=== PATIENT | female | born 1935 | race Two or more races ===

== ENCOUNTER 2017-06-04 09:48 | Outpatient (CLI) | payer OTHER ==
[~2017-06-04 09:48] MED LIST: ASA81 MG; ATIVAN1 MG; GLUCOPHAGE XR500 MG; HYZAAR 100-121 UDTAB; INDUR; PLAVIX75 MG; SIMVASTATIN10 MG; TOPROL XL25 MG; VITAMINA B12
== END 2017-06-04 10:54 | disposition home or self-care (01) ==
LOC: NUCLEAR 09:48
DX: I70.239 Atherosclerosis of native arteries of right leg with ulceration of unspecified site (principal)

== ENCOUNTER 2017-06-17 13:32 | Outpatient (CLI) | payer OTHER | END 2017-06-17 13:47 | disposition home or self-care (01) | LOC: LAB 13:32 | DX: R94.5 Abnormal results of liver function studies (principal); I24.0 Acute coronary thrombosis not resulting in myocardial infarction; I10 Essential (primary) hypertension; R07.89 Other chest pain; E78.2 Mixed hyperlipidemia ==

== ENCOUNTER 2017-10-05 12:41 | Outpatient (CLI) | payer OTHER | END 2017-10-05 17:00 | disposition home or self-care (01) | LOC: MRI 12:41 | DX: M54.5 Low back pain (principal) | CPT/HCPCS: 72158; A9579; 72149 ==

== ENCOUNTER 2017-11-19 09:51 | Outpatient (CLI) | payer OTHER | END 2017-11-19 10:00 | disposition home or self-care (01) | LOC: NUCLEAR 09:51 | DX: S85.001A Unspecified injury of popliteal artery, right leg, initial encounter (principal); S85.002A Unspecified injury of popliteal artery, left leg, initial encounter; I87.2 Venous insufficiency (chronic) (peripheral) ==

== ENCOUNTER 2018-01-26 17:43 | Outpatient (CLI) | payer OTHER | END 2018-01-26 17:58 | disposition home or self-care (01) | LOC: RAD 17:43 | DX: M54.5 Low back pain (principal); M79.604 Pain in right leg ==

== ENCOUNTER 2018-10-11 21:04 | Emergency (ER) | payer OTHER ==
[~2018-10-11] VITALS: Ht 167.6 cm; Wt 63.5 kg
== END 2018-10-13 07:59 | disposition designated cancer center or children's hospital (05) ==
LOC: ER 21:04 → CPU-OBS 21:07 → ER 10-13 07:59
DX: I20.0 Unstable angina (principal); E78.00 Pure hypercholesterolemia, unspecified; E11.9 Type 2 diabetes mellitus without complications; E78.1 Pure hyperglyceridemia

== ENCOUNTER 2018-11-03 11:42 | Outpatient (CLI) | payer OTHER | END 2018-11-03 15:00 | disposition home or self-care (01) | LOC: RAD 11:42 | DX: M25.511 Pain in right shoulder (principal) ==

== ENCOUNTER 2019-06-10 09:22 | Outpatient (CLI) | payer OTHER | END 2019-06-10 10:41 | disposition home or self-care (01) | LOC: RAD 09:22 → NUCLEAR 09:22 | DX: I87.2 Venous insufficiency (chronic) (peripheral) (principal) ==

== ENCOUNTER → 2019-11-05 12:27 | Outpatient (CLI) | payer OTHER | END | disposition home or self-care (01) | LOC: LAB 12:27 | PROVIDERS: ATTEND Internal Medicine Cardiovascular Disease | DX: E03.8 Other specified hypothyroidism (principal); E78.1 Pure hyperglyceridemia; R94.5 Abnormal results of liver function studies; R78.89 Finding of other specified substances, not normally found in blood; E11.9 Type 2 diabetes mellitus without complications ==

== ENCOUNTER → 2019-11-23 | Outpatient (CLI) | payer OTHER | END | disposition home or self-care (01) | LOC: MRI 10:35 | PROVIDERS: ATTEND Internal Medicine Cardiovascular Disease | DX: I63.89 Other cerebral infarction (principal) | CPT/HCPCS: 70553; A9575 ==

== ENCOUNTER → 2019-12-20 | Outpatient (CLI) | payer OTHER | END | disposition home or self-care (01) | LOC: MRI 13:22 | PROVIDERS: ATTEND Internal Medicine Cardiovascular Disease | DX: M54.5 Low back pain (principal); M47.016 Anterior spinal artery compression syndromes, lumbar region | CPT/HCPCS: 72158; A9575; 72149 ==

== ENCOUNTER → 2020-04-05 | Outpatient (CLI) | payer OTHER | END | disposition home or self-care (01) | LOC: MRI 09:03 | PROVIDERS: ATTEND Internal Medicine Cardiovascular Disease | DX: M22.42 Chondromalacia patellae, left knee (principal); M25.562 Pain in left knee | CPT/HCPCS: 73721 ==

== ENCOUNTER 2020-05-16 12:12 | Outpatient (CLI) | payer OTHER | END 2020-05-16 12:30 | disposition home or self-care (01) | LOC: PPH VACUNA 12:12 | PROVIDERS: ATTEND Emergency Medicine Pediatric Emergency Medicine | DX: Z23 Encounter for immunization (principal) ==

== ENCOUNTER → 2020-05-23 09:13 | Outpatient (CLI) | payer OTHER | END | disposition home or self-care (01) | LOC: LAB 09:13 | PROVIDERS: ATTEND Internal Medicine Cardiovascular Disease | DX: D68.8 Other specified coagulation defects (principal); I10 Essential (primary) hypertension; E11.9 Type 2 diabetes mellitus without complications; E78.00 Pure hypercholesterolemia, unspecified; E78.1 Pure hyperglyceridemia; I25.119 Atherosclerotic heart disease of native coronary artery with unspecified angina pectoris; I24.8 Other forms of acute ischemic heart disease ==

== ENCOUNTER 2020-12-31 09:39 | Outpatient (CLI) | payer OTHER ==
[~2020-12-31 09:39] MED LIST changes: +ATIVAN2 M1 PO; +CRESTOR40 MG PO; +GLIMEPIRIDE4 MG; +METFORMIN HCL500 M3 PO; +TOPROL XL100 M1 PO
== END 2020-12-31 18:00 | disposition home or self-care (01) ==
LOC: LAB 09:39
PROVIDERS: ATTEND Internal Medicine Cardiovascular Disease
DX: E78.1 Pure hyperglyceridemia (principal); E11.9 Type 2 diabetes mellitus without complications; E78.89 Other lipoprotein metabolism disorders; I24.8 Other forms of acute ischemic heart disease

== ENCOUNTER 2021-01-03 15:07 | Outpatient (CLI) | payer OTHER | END 2021-01-03 15:08 | disposition home or self-care (01) | LOC: NUCLEAR 15:07 | DX: I25.10 Atherosclerotic heart disease of native coronary artery without angina pectoris (principal); I10 Essential (primary) hypertension ==

== ENCOUNTER 2021-01-03 15:23 | Outpatient (CLI) | payer OTHER | END 2021-01-03 15:30 | disposition home or self-care (01) | LOC: RAD 15:23 | PROVIDERS: ATTEND Internal Medicine Cardiovascular Disease | DX: I10 Essential (primary) hypertension (principal); I25.10 Atherosclerotic heart disease of native coronary artery without angina pectoris ==

== ENCOUNTER 2021-01-03 15:49 | Outpatient (CLI) | payer OTHER | END 2021-01-03 19:00 | disposition home or self-care (01) | LOC: LAB 15:49 | PROVIDERS: ATTEND Internal Medicine Cardiovascular Disease | DX: K76.89 Other specified diseases of liver (principal); E11.9 Type 2 diabetes mellitus without complications; E78.00 Pure hypercholesterolemia, unspecified; E78.1 Pure hyperglyceridemia ==

== ENCOUNTER 2021-02-07 09:19 | Outpatient (CLI) | payer OTHER | END 2021-02-07 09:22 | disposition home or self-care (01) | LOC: PPH VACUNA 09:19 | PROVIDERS: ATTEND Emergency Medicine Pediatric Emergency Medicine | DX: Z23 Encounter for immunization (principal) ==

== ENCOUNTER 2021-02-14 09:36 | Outpatient (CLI) | payer OTHER | END 2021-02-14 09:40 | disposition home or self-care (01) | LOC: NUCLEAR 09:36 | PROVIDERS: ATTEND Internal Medicine Cardiovascular Disease | DX: I80.202 Phlebitis and thrombophlebitis of unspecified deep vessels of left lower extremity (principal) ==

== ENCOUNTER 2021-02-14 11:01 | Outpatient (CLI) | payer OTHER | END 2021-02-14 11:05 | disposition home or self-care (01) | LOC: RAD 11:01 | PROVIDERS: ATTEND Internal Medicine Cardiovascular Disease | DX: M13.862 Other specified arthritis, left knee (principal); M13.861 Other specified arthritis, right knee; M25.461 Effusion, right knee; M25.561 Pain in right knee; M25.362 Other instability, left knee; M25.662 Stiffness of left knee, not elsewhere classified ==

== ENCOUNTER → 2021-04-04 | Outpatient (CLI) | payer OTHER | END | disposition home or self-care (01) | LOC: LAB 15:46 | PROVIDERS: ATTEND Internal Medicine Cardiovascular Disease | DX: D68.8 Other specified coagulation defects (principal); E11.9 Type 2 diabetes mellitus without complications ==

== ENCOUNTER 2021-05-22 15:06 | Outpatient (CLI) | payer OTHER | END 2021-05-22 16:20 | disposition home or self-care (01) | LOC: LAB 15:06 | PROVIDERS: ATTEND Internal Medicine Cardiovascular Disease | DX: D64.89 Other specified anemias (principal); R07.89 Other chest pain; I25.10 Atherosclerotic heart disease of native coronary artery without angina pectoris; E78.00 Pure hypercholesterolemia, unspecified; Z20.828 Contact with and (suspected) exposure to other viral communicable diseases; I10 Essential (primary) hypertension; E11.9 Type 2 diabetes mellitus without complications; D68.8 Other specified coagulation defects; K76.0 Fatty (change of) liver, not elsewhere classified; Z86.007 Personal history of in-situ neoplasm of skin; I24.8 Other forms of acute ischemic heart disease ==

== ENCOUNTER 2021-05-30 13:40 | Outpatient (CLI) | payer OTHER | END 2021-05-30 16:01 | disposition home or self-care (01) | LOC: LAB 13:40 | PROVIDERS: ATTEND Internal Medicine Cardiovascular Disease | DX: R07.89 Other chest pain (principal) ==

== ENCOUNTER 2021-05-31 13:30 | Outpatient (CLI) | payer OTHER | END 2021-05-31 13:35 | disposition home or self-care (01) | LOC: LAB 13:30 | PROVIDERS: ATTEND Internal Medicine Cardiovascular Disease | DX: E11.9 Type 2 diabetes mellitus without complications (principal); R07.89 Other chest pain; I10 Essential (primary) hypertension; E78.00 Pure hypercholesterolemia, unspecified ==

== ENCOUNTER 2021-06-17 10:46 | Outpatient (CLI) | payer OTHER | END 2021-06-18 14:38 | disposition home or self-care (01) | LOC: RAD 10:46 | PROVIDERS: ATTEND Anesthesiology Pain Medicine | DX: M16.0 Bilateral primary osteoarthritis of hip (principal); M17.0 Bilateral primary osteoarthritis of knee ==

== ENCOUNTER 2021-08-02 16:40 | Outpatient (CLI) | payer OTHER | END 2021-08-02 23:00 | disposition home or self-care (01) | LOC: LAB 16:40 | PROVIDERS: ATTEND Internal Medicine Cardiovascular Disease | DX: I10 Essential (primary) hypertension (principal); R07.9 Chest pain, unspecified; E78.1 Pure hyperglyceridemia ==

== ENCOUNTER 2021-10-10 14:25 | Outpatient (CLI) | payer OTHER | END 2021-10-10 14:35 | disposition home or self-care (01) | LOC: LAB 14:25 | PROVIDERS: ATTEND Internal Medicine Cardiovascular Disease | DX: C50.111 Malignant neoplasm of central portion of right female breast (principal); I10 Essential (primary) hypertension; E78.00 Pure hypercholesterolemia, unspecified; E78.1 Pure hyperglyceridemia; D64.9 Anemia, unspecified; E55.9 Vitamin D deficiency, unspecified; M81.0 Age-related osteoporosis without current pathological fracture; Z12.11 Encounter for screening for malignant neoplasm of colon; E03.9 Hypothyroidism, unspecified; D51.9 Vitamin B12 deficiency anemia, unspecified ==

== ENCOUNTER 2021-11-23 12:50 | Outpatient (CLI) | payer OTHER | END 2021-11-23 12:58 | disposition home or self-care (01) | LOC: LAB 12:50 | PROVIDERS: ATTEND Internal Medicine Cardiovascular Disease | DX: R79.0 Abnormal level of blood mineral (principal); E78.00 Pure hypercholesterolemia, unspecified; E78.1 Pure hyperglyceridemia; M05.9 Rheumatoid arthritis with rheumatoid factor, unspecified; M06.9 Rheumatoid arthritis, unspecified; M19.90 Unspecified osteoarthritis, unspecified site; D63.8 Anemia in other chronic diseases classified elsewhere; E03.8 Other specified hypothyroidism; Z12.11 Encounter for screening for malignant neoplasm of colon; Z13.0 Encounter for screening for diseases of the blood and blood-forming organs and certain disorders involving the immune mechanism ==

== ENCOUNTER 2021-12-13 07:30 | Outpatient (CLI) | payer OTHER | END 2021-12-13 15:24 | disposition home or self-care (01) | LOC: TOM 07:30 | PROVIDERS: ATTEND Internal Medicine Cardiovascular Disease | DX: R10.84 Generalized abdominal pain (principal); E11.9 Type 2 diabetes mellitus without complications ==

== ENCOUNTER → 2021-12-24 | Outpatient (CLI) | payer OTHER | END | disposition home or self-care (01) | LOC: LAB 16:48 | DX: E78.1 Pure hyperglyceridemia (principal); E78.00 Pure hypercholesterolemia, unspecified; R07.9 Chest pain, unspecified; I10 Essential (primary) hypertension; D64.9 Anemia, unspecified; E03.8 Other specified hypothyroidism; E11.9 Type 2 diabetes mellitus without complications; I25.119 Atherosclerotic heart disease of native coronary artery with unspecified angina pectoris ==

== ENCOUNTER 2022-02-04 14:50 | Outpatient (CLI) | payer OTHER | END 2022-02-04 14:54 | disposition home or self-care (01) | LOC: LAB 14:50 | PROVIDERS: ATTEND Internal Medicine Cardiovascular Disease | DX: E78.1 Pure hyperglyceridemia (principal); I10 Essential (primary) hypertension; E03.8 Other specified hypothyroidism; E11.9 Type 2 diabetes mellitus without complications; R07.9 Chest pain, unspecified ==

== ENCOUNTER 2022-05-29 13:42 | Outpatient (CLI) | payer OTHER | END 2022-05-29 13:51 | disposition home or self-care (01) | LOC: LAB 13:42 | PROVIDERS: ATTEND Internal Medicine Cardiovascular Disease | DX: Z01.812 Encounter for preprocedural laboratory examination (principal); E55.9 Vitamin D deficiency, unspecified; D64.9 Anemia, unspecified; E11.9 Type 2 diabetes mellitus without complications; E03.8 Other specified hypothyroidism; E78.00 Pure hypercholesterolemia, unspecified; E78.1 Pure hyperglyceridemia; R97.8 Other abnormal tumor markers; Z80.1 Family history of malignant neoplasm of trachea, bronchus and lung; I10 Essential (primary) hypertension ==

== ENCOUNTER 2022-08-07 13:56 | Outpatient (CLI) | payer OTHER | END 2022-08-07 14:06 | disposition home or self-care (01) | LOC: LAB 13:56 | PROVIDERS: ATTEND Internal Medicine Cardiovascular Disease | DX: E03.8 Other specified hypothyroidism (principal); I10 Essential (primary) hypertension; E11.9 Type 2 diabetes mellitus without complications; N39.0 Urinary tract infection, site not specified; E78.00 Pure hypercholesterolemia, unspecified; E78.1 Pure hyperglyceridemia; M13.831 Other specified arthritis, right wrist ==

== ENCOUNTER 2022-09-23 11:58 | Outpatient (CLI) | payer OTHER | END 2022-09-23 12:01 | disposition home or self-care (01) | LOC: NUCLEAR 11:58 | PROVIDERS: ATTEND Internal Medicine Cardiovascular Disease | DX: I35.0 Nonrheumatic aortic (valve) stenosis (principal) ==

== ENCOUNTER 2022-11-14 16:28 | Outpatient (CLI) | payer OTHER | END 2022-11-14 18:50 | disposition home or self-care (01) | LOC: LAB 16:28 | PROVIDERS: ATTEND Internal Medicine Cardiovascular Disease | DX: K92.2 Gastrointestinal hemorrhage, unspecified (principal); D64.9 Anemia, unspecified; D51.9 Vitamin B12 deficiency anemia, unspecified; Z11.9 Encounter for screening for infectious and parasitic diseases, unspecified; E78.00 Pure hypercholesterolemia, unspecified; E78.1 Pure hyperglyceridemia; I10 Essential (primary) hypertension ==

== ENCOUNTER 2023-01-17 13:23 | Outpatient (CLI) | payer OTHER | END 2023-01-17 13:28 | disposition home or self-care (01) | LOC: LAB 13:23 | PROVIDERS: ATTEND Internal Medicine Cardiovascular Disease | DX: E55.9 Vitamin D deficiency, unspecified (principal); E78.00 Pure hypercholesterolemia, unspecified; E78.1 Pure hyperglyceridemia; E11.9 Type 2 diabetes mellitus without complications; D68.8 Other specified coagulation defects; E03.8 Other specified hypothyroidism; Z12.11 Encounter for screening for malignant neoplasm of colon; Z13.0 Encounter for screening for diseases of the blood and blood-forming organs and certain disorders involving the immune mechanism; C18.9 Malignant neoplasm of colon, unspecified; D51.9 Vitamin B12 deficiency anemia, unspecified; D52.8 Other folate deficiency anemias; Z79.01 Long term (current) use of anticoagulants ==

== ENCOUNTER → 2023-02-26 14:27 | Outpatient (CLI) | payer OTHER ==
[2023-02-26 14:58] LABS: PH,URINE 5.5 (5.0-8.0); URINE APPEARANCE Clear; URINE BILIRRUBIN Negative (NEGATIVE); URINE BLOOD Negative; URINE COLOR Yellow; URINE LEUKOCYTE Negative; URINE NITRATE Negative; URINE PROTEIN Negative (NEGATIVE); URINE UROBILINOGEN 0.2 E.U./dl
[2023-02-26 14:59] LABS: HEMATOCRIT 34.6 % (36.0-45.00); HEMOGLOBIN 11.3 g/dL (12.0-15.00); MEAN CELL VOLUME 90.2 fL (80.00-100.00); MEAN CORPUSCULAR HEMOGLOBIN 29.5 pg (27.00-32.0); MEAN CORPUSCULAR HGB CONC 32.7 g/dl (32.0-36.0); PLATELET COUNT 176 K/uL (150-450); RED BLOOD COUNT 3.84 M/uL (4.00-6.00); RED CELL DISTRIBUTION WIDTH 13.5 % (11.5-14.5)
[2023-02-26 15:02] LABS: URINE BACTERIA 91.7 uL (0.0-1933); URINE EPITHELIAL CELLS 4.1 uL (0.0-38.8); URINE WBC 3.8 uL (0.0-23.2)
[2023-02-26 15:06] LABS: URINE GLUCOSE 100 MG/DL (NEGATIVE); URINE RBC 1.2 uL (0.0-20.8)
[2023-02-26 15:37] LABS: BILIRUBIN TOTAL 0.51 mg/dL (0.3-1.2); CALCIUM 9.1 mg/dL (8.5-10.1); CREATININE SERUM 1.13 mg/dL (0.55-1.02); GFR 45.44; GLOBULINA 3.6 G/DL (2.4-3.5); POTASSIUM 4.06 mEq/L (3.5-5.1); TOTAL PROTEIN 6.6 gm/dL (6.4-8.2); TSH 2.23 uIU/mL (0.358-3.74)
[2023-02-27 09:17] LABS: VITAMIN D3 25 HYDROXY 23.04 ng/ml (30-120)
== END | disposition home or self-care (01) ==
LOC: LAB 14:27
PROVIDERS: ATTEND Internal Medicine Cardiovascular Disease
DX: E11.9 Type 2 diabetes mellitus without complications (principal); D51.3 Other dietary vitamin B12 deficiency anemia; R07.9 Chest pain, unspecified; E78.00 Pure hypercholesterolemia, unspecified; E03.8 Other specified hypothyroidism; E78.1 Pure hyperglyceridemia; D51.9 Vitamin B12 deficiency anemia, unspecified; I10 Essential (primary) hypertension; M81.0 Age-related osteoporosis without current pathological fracture

== ENCOUNTER 2023-04-22 16:59 | Outpatient (CLI) | payer OTHER ==
[2023-04-22 17:20] LABS: HEMATOCRIT 33.4 % (36.0-45.00); HEMOGLOBIN 11.5 g/dL (12.0-15.00); MEAN CELL VOLUME 89.1 fL (80.00-100.00); MEAN CORPUSCULAR HEMOGLOBIN 30.6 pg (27.00-32.0); MEAN CORPUSCULAR HGB CONC 34.3 g/dl (32.0-36.0); PLATELET COUNT 195 K/uL (150-450); RED BLOOD COUNT 3.75 M/uL (4.00-6.00); RED CELL DISTRIBUTION WIDTH 14.4 % (11.5-14.5)
[2023-04-22 17:22] LABS: PH,URINE 5.5 (5.0-8.0); URINE APPEARANCE Clear; URINE BACTERIA 79.3 uL (0.0-1933); URINE BILIRRUBIN Negative (NEGATIVE); URINE BLOOD Negative; URINE COLOR Yellow; URINE EPITHELIAL CELLS 20.9 uL (0.0-38.8); URINE LEUKOCYTE Negative; URINE NITRATE Negative; URINE PROTEIN Negative (NEGATIVE); URINE UROBILINOGEN 0.2 E.U./dl; URINE WBC 24.3 uL (0.0-23.2)
[2023-04-22 17:23] LABS: URINE GLUCOSE >=1000 MG/DL (NEGATIVE); URINE RBC 0.4 uL (0.0-20.8)
[2023-04-22 17:32] LABS: ERYTHROCYTE SEDIMENTATION RATE 82 mm/hr
[2023-04-22 17:33] LABS: BILIRUBIN TOTAL 0.32 mg/dL (0.3-1.2); CALCIUM 8.8 mg/dL (8.5-10.1); CHOL HDL RATIO 5.8 (0-5.0); CREATININE SERUM 1.11 mg/dL (0.55-1.02); GFR 46.39; GLOBULINA 3.9 G/DL (2.4-3.5); POTASSIUM 4.33 mEq/L (3.5-5.1); TOTAL PROTEIN 6.9 gm/dL (6.4-8.2)
== END 2023-04-22 17:04 | disposition home or self-care (01) ==
LOC: LAB 16:59
PROVIDERS: ATTEND Internal Medicine Cardiovascular Disease
DX: M13.80 Other specified arthritis, unspecified site (principal); E78.00 Pure hypercholesterolemia, unspecified; E78.1 Pure hyperglyceridemia; E11.9 Type 2 diabetes mellitus without complications; Z91.011 Allergy to milk products; Z91.013 Allergy to seafood

== ENCOUNTER 2023-05-30 11:49 | Outpatient (CLI) | payer OTHER ==
[2023-05-30 13:56] LABS: MYCOPLASMA PNEUMONIAE IGM NON REACTIVE (NO REACTIVE)
== END 2023-05-30 11:50 | disposition home or self-care (01) ==
LOC: LAB 11:49
PROVIDERS: ATTEND Internal Medicine Cardiovascular Disease
DX: J10.1 Influenza due to other identified influenza virus with other respiratory manifestations (principal); B34.8 Other viral infections of unspecified site; B34.9 Viral infection, unspecified; A49.3 Mycoplasma infection, unspecified site; Z11.52 Encounter for screening for COVID-19; B97.4 Respiratory syncytial virus as the cause of diseases classified elsewhere; U07.1 COVID-19

== ENCOUNTER 2023-06-04 14:30 | Outpatient (CLI) | payer OTHER ==
[2023-06-04 14:51] LABS: HEMATOCRIT 38.1 % (36.0-45.00); HEMOGLOBIN 12.9 g/dL (12.0-15.00); MEAN CELL VOLUME 88.4 fL (80.00-100.00); MEAN CORPUSCULAR HEMOGLOBIN 30.1 pg (27.00-32.0); PLATELET COUNT 175 K/uL (150-450); RED CELL DISTRIBUTION WIDTH 14.6 % (11.5-14.5)
[2023-06-04 15:02] LABS: MYCOPLASMA PNEUMONIAE IGM REACTIVE (NO REACTIVE)
[2023-06-04 15:04] LABS: ERYTHROCYTE SEDIMENTATION RATE 61 mm/hr
[2023-06-04 15:13] LABS: CHOL HDL RATIO 3.3 (0-5.0); TSH 3.31 uIU/mL (0.358-3.74)
[2023-06-04 15:21] LABS: C-REACTIVE PROTEIN 0.62 MG/DL (0.00-0.29)
[2023-06-05 10:21] LABS: URINE APPEARANCE Clear; URINE BILIRRUBIN Negative (NEGATIVE); URINE BLOOD Negative; URINE COLOR Yellow; URINE LEUKOCYTE Negative; URINE NITRATE Negative; URINE PROTEIN Negative (NEGATIVE); URINE UROBILINOGEN 0.2 E.U./dl
[2023-06-05 10:23] LABS: URINE BACTERIA 115.8 uL (0.0-1933); URINE EPITHELIAL CELLS 1.9 uL (0.0-38.8); URINE WBC 4.2 uL (0.0-23.2)
[2023-06-05 10:31] LABS: URINE GLUCOSE >=1000 MG/DL (NEGATIVE); URINE RBC 1.1 uL (0.0-20.8)
== END 2023-06-04 14:44 | disposition home or self-care (01) ==
LOC: LAB 14:30
PROVIDERS: ATTEND Internal Medicine Cardiovascular Disease
DX: E03.8 Other specified hypothyroidism (principal); A49.3 Mycoplasma infection, unspecified site; B34.9 Viral infection, unspecified; E78.2 Mixed hyperlipidemia; E78.1 Pure hyperglyceridemia; I10 Essential (primary) hypertension; B34.8 Other viral infections of unspecified site; E11.9 Type 2 diabetes mellitus without complications; R70.0 Elevated erythrocyte sedimentation rate; R79.82 Elevated C-reactive protein (CRP); D64.9 Anemia, unspecified

== ENCOUNTER 2023-07-21 13:32 | Outpatient (CLI) | payer OTHER ==
[2023-07-21 13:54] LABS: HEMATOCRIT 35.3 % (36.0-45.00); MEAN CELL VOLUME 89.2 fL (80.00-100.00); MEAN CORPUSCULAR HEMOGLOBIN 30.4 pg (27.00-32.0); MEAN CORPUSCULAR HGB CONC 34.1 g/dl (32.0-36.0); PLATELET COUNT 174 K/uL (150-450); RED BLOOD COUNT 3.95 M/uL (4.00-6.00); RED CELL DISTRIBUTION WIDTH 14.7 % (11.5-14.5)
[2023-07-21 13:57] LABS: PH,URINE 5.5 (5.0-8.0); URINE APPEARANCE Clear; URINE BILIRRUBIN Negative (NEGATIVE); URINE BLOOD Negative; URINE COLOR Yellow; URINE LEUKOCYTE Negative; URINE NITRATE Negative; URINE PROTEIN Negative (NEGATIVE); URINE UROBILINOGEN 0.2 E.U./dl
[2023-07-21 14:00] LABS: URINE BACTERIA 22.6 uL (0.0-1933); URINE WBC 3.8 uL (0.0-23.2)
[2023-07-21 14:02] LABS: URINE EPITHELIAL CELLS 0.7 uL (0.0-38.8); URINE GLUCOSE >=1000 MG/DL (NEGATIVE); URINE RBC 1.1 uL (0.0-20.8)
[2023-07-21 14:04] LABS: INR 1.01; PARTIAL THROMBOPLASTIN TIME 31.6 SECONDS (22.0-34.0)
[2023-07-21 14:18] LABS: PROTHROMBIN TIME 10.6 SECONDS (9.0-11.5)
[2023-07-21 14:35] LABS: BILIRUBIN TOTAL 0.34 mg/dL (0.3-1.2); CALCIUM 9.1 mg/dL (8.5-10.1); CHOL HDL RATIO 5.5 (0-5.0); CREATININE SERUM 1.06 mg/dL (0.55-1.02); GFR 48.81; GLOBULINA 3.9 G/DL (2.4-3.5); POTASSIUM 4.49 mEq/L (3.5-5.1); TOTAL PROTEIN 6.9 gm/dL (6.4-8.2); TSH 3.73 uIU/mL (0.358-3.74)
[2023-07-21 15:10] LABS: VITAMIN D3 25 HYDROXY 26.67 ng/ml (30-120)
[2023-07-21 15:15] LABS: CREATININE URINE RANDOM 45.3 MG/DL (30-125)
== END 2023-07-21 13:39 | disposition home or self-care (01) ==
LOC: LAB 13:32
PROVIDERS: ATTEND Internal Medicine Cardiovascular Disease
DX: E03.8 Other specified hypothyroidism (principal); E78.1 Pure hyperglyceridemia; N39.0 Urinary tract infection, site not specified

== ENCOUNTER 2023-08-06 07:47 | Outpatient (CLI) | payer OTHER | END 2023-08-06 08:00 | disposition home or self-care (01) | LOC: TOM 07:47 | PROVIDERS: ATTEND Internal Medicine Cardiovascular Disease | DX: Z12.11 Encounter for screening for malignant neoplasm of colon (principal) ==

== ENCOUNTER 2023-11-03 14:52 | Outpatient (CLI) | payer OTHER ==
[2023-11-03 15:30] LABS: HEMATOCRIT 31.6 % (36.0-45.00); HEMOGLOBIN 10.9 g/dL (12.0-15.00); MEAN CELL VOLUME 87.3 fL (80.00-100.00); MEAN CORPUSCULAR HEMOGLOBIN 30.1 pg (27.00-32.0); MEAN CORPUSCULAR HGB CONC 34.5 g/dl (32.0-36.0); PLATELET COUNT 169 K/uL (150-450); RED BLOOD COUNT 3.62 M/uL (4.00-6.00); RED CELL DISTRIBUTION WIDTH 14.2 % (11.5-14.5)
[2023-11-03 15:36] LABS: INR 1.05; PARTIAL THROMBOPLASTIN TIME 29.9 SECONDS (22.0-34.0)
[2023-11-03 15:40] LABS: ERYTHROCYTE SEDIMENTATION RATE 36 mm/hr
[2023-11-03 15:48] LABS: ALBUMIN 2.8 gm/dL (3.4-5.0); BILIRUBIN TOTAL 0.32 mg/dL (0.3-1.2); CALCIUM 8.6 mg/dL (8.5-10.1); CREATININE SERUM 1.13 mg/dL (0.55-1.02); GFR 45.34; GLOBULINA 3.8 G/DL (2.4-3.5); POTASSIUM 4.49 mEq/L (3.5-5.1); TOTAL PROTEIN 6.6 gm/dL (6.4-8.2)
== END 2023-11-03 14:53 | disposition home or self-care (01) ==
LOC: LAB 14:52
PROVIDERS: ATTEND Internal Medicine Cardiovascular Disease
DX: R07.9 Chest pain, unspecified (principal); R74.8 Abnormal levels of other serum enzymes; E03.8 Other specified hypothyroidism; E11.9 Type 2 diabetes mellitus without complications; I10 Essential (primary) hypertension; E78.1 Pure hyperglyceridemia; M06.9 Rheumatoid arthritis, unspecified; R70.0 Elevated erythrocyte sedimentation rate; R79.1 Abnormal coagulation profile; Z51.89 Encounter for other specified aftercare

== ENCOUNTER 2023-12-18 18:14 | Outpatient (CLI) | payer OTHER ==
[2023-12-18 18:57] LABS: HEMATOCRIT 32.1 % (36.0-45.00); HEMOGLOBIN 10.9 g/dL (12.0-15.00); MEAN CELL VOLUME 90.9 fL (80.00-100.00); MEAN CORPUSCULAR HEMOGLOBIN 30.8 pg (27.00-32.0); MEAN CORPUSCULAR HGB CONC 33.9 g/dl (32.0-36.0); PLATELET COUNT 194 K/uL (150-450); RED BLOOD COUNT 3.54 M/uL (4.00-6.00); RED CELL DISTRIBUTION WIDTH 14.3 % (11.5-14.5)
[2023-12-18 19:19] LABS: ALBUMIN 3.1 gm/dL (3.4-5.0); BILIRUBIN TOTAL 0.42 mg/dL (0.3-1.2); CALCIUM 9.2 mg/dL (8.5-10.1); CREATININE SERUM 0.98 mg/dL (0.55-1.02); GFR 53.44; GLOBULINA 3.5 G/DL (2.4-3.5); TOTAL PROTEIN 6.6 gm/dL (6.4-8.2)
== END 2023-12-18 18:34 | disposition home or self-care (01) ==
LOC: LAB 18:14
PROVIDERS: ATTEND Internal Medicine Cardiovascular Disease
DX: R74.9 Abnormal serum enzyme level, unspecified (principal); K85.10 Biliary acute pancreatitis without necrosis or infection; K85.90 Acute pancreatitis without necrosis or infection, unspecified; E78.1 Pure hyperglyceridemia; I10 Essential (primary) hypertension

== ENCOUNTER 2024-02-03 16:31 | Outpatient (CLI) | payer OTHER ==
[2024-02-03 17:03] LABS: PH,URINE 5.5 (5.0-8.0); URINE APPEARANCE Clear; URINE BILIRRUBIN Negative (NEGATIVE); URINE BLOOD Negative; URINE COLOR Yellow; URINE KETONE Negative (NEGATIVE); URINE LEUKOCYTE Trace; URINE NITRATE Negative; URINE PROTEIN Negative (NEGATIVE); URINE UROBILINOGEN 0.2 E.U./dl
[2024-02-03 17:06] LABS: URINE BACTERIA 142.3 uL (0.0-1933); URINE EPITHELIAL CELLS 11.2 uL (0.0-38.8); URINE RBC 2.5 uL (0.0-20.8); URINE WBC 36.4 uL (0.0-23.2)
[2024-02-03 17:12] LABS: HEMATOCRIT 35.2 % (36.0-45.00); HEMOGLOBIN 12.1 g/dL (12.0-15.00); MEAN CELL VOLUME 87.9 fL (80.00-100.00); MEAN CORPUSCULAR HEMOGLOBIN 30.2 pg (27.00-32.0); MEAN CORPUSCULAR HGB CONC 34.3 g/dl (32.0-36.0); PLATELET COUNT 175 K/uL (150-450); RED BLOOD COUNT 4.01 M/uL (4.00-6.00)
[2024-02-03 17:15] LABS: ERYTHROCYTE SEDIMENTATION RATE 58 mm/hr
[2024-02-03 17:19] LABS: BILIRUBIN TOTAL 0.28 mg/dL (0.3-1.2); CALCIUM 9.3 mg/dL (8.5-10.1); CHOL HDL RATIO 5.1 (0-5.0); CREATININE SERUM 0.81 mg/dL (0.55-1.02); GFR 66.58; POTASSIUM 4.33 mEq/L (3.5-5.1)
[2024-02-03 17:25] LABS: URINE CAST 0.15 uL (0.0-1.40); URINE GLUCOSE >=1000 MG/DL (NEGATIVE)
== END 2024-02-03 16:36 | disposition home or self-care (01) ==
LOC: LAB 16:31
PROVIDERS: ATTEND Internal Medicine Cardiovascular Disease
DX: N39.0 Urinary tract infection, site not specified (principal); R70.0 Elevated erythrocyte sedimentation rate; R79.89 Other specified abnormal findings of blood chemistry; E11.9 Type 2 diabetes mellitus without complications

== ENCOUNTER 2024-03-14 16:02 | Outpatient (CLI) | payer OTHER ==
[2024-03-14 16:25] LABS: HEMATOCRIT 35.8 % (36.0-45.00); HEMOGLOBIN 12.3 g/dL (12.0-15.00); MEAN CELL VOLUME 87.7 fL (80.00-100.00); MEAN CORPUSCULAR HEMOGLOBIN 30.1 pg (27.00-32.0); MEAN CORPUSCULAR HGB CONC 34.3 g/dl (32.0-36.0); PLATELET COUNT 171 K/uL (150-450); RED BLOOD COUNT 4.08 M/uL (4.00-6.00); RED CELL DISTRIBUTION WIDTH 14.2 % (11.5-14.5)
[2024-03-14 22:27] LABS: MYCOPLASMA PNEUMONIAE IGM REACTIVE (NO REACTIVE)
== END 2024-03-14 16:26 | disposition home or self-care (01) ==
LOC: LAB 16:02
PROVIDERS: ATTEND Internal Medicine Cardiovascular Disease
DX: B34.9 Viral infection, unspecified (principal)